=== PATIENT | female | born 1955 | race Two or more races ===

== ENCOUNTER 2018-08-02 13:59 | Emergency (ER) | payer MEDICAID ==
[~2018-08-02] VITALS: Ht 157.5 cm; Wt 52.2 kg
[2018-08-02 14:04] VITALS: BP 132/76
[2018-08-02] MEDS ORDERED: traMADol HCL 50 MG TAB PO ONE (15:30)
== END 2018-08-02 15:45 | disposition home or self-care (01) ==
LOC: ER 13:59
DX: M54.30 Sciatica, unspecified side (principal); E11.9 Type 2 diabetes mellitus without complications; Z76.0 Encounter for issue of repeat prescription